=== PATIENT | female | born 1975 | race Hispanic/Latino ===

== ENCOUNTER 2023-03-07 20:26 | Emergency (ER) | payer OTHER ==
[2023-03-07] MEDS ORDERED: diphenhydrAMINE 25 MG CAP ONE (21:17)
[2023-03-07] MEDS ORDERED: Ketorolac Tromethamine 30 MG/ML VIAL ONE (21:17)
[2023-03-07] MEDS ORDERED: Metoclopramide HCl 10 MG TAB ONE (21:18)
[2023-03-07 21:45] LABS: SARS-CoV-2 NAA Rapid Test DETECTED (NotDetected)
[2023-03-07] MEDS ORDERED: Ondansetron ODT 4 MG TAB ONE (22:22)
[2023-03-07] MEDS ORDERED: HYDROcodone/Acetaminophen 5/325 mg Tablet ONE (22:34)
== END 2023-03-07 22:43 | disposition home or self-care (01) ==
LOC: ERS 20:26
DX: U07.1 COVID-19 (principal)
CPT/HCPCS: 96372; 99284; J1885; Q0162

== ENCOUNTER 2024-03-09 21:37 | Emergency (ER) | payer OTHER ==
[2024-03-09 22:46] LABS: #Basophils 0.05 10x3/uL (0.0-0.2); %Basophils 0.8 % (0.0-1.0); %Eosinophils 2.2 % (0.0-10.0); %Lymphocytes 30.5 % (21.0-51.0); %Monocytes 8.9 % (0.0-10.0); %Neutrophils 57.4 % (42.0-75.0); Hematocrit 42.3 % (36.0-47.0); Hemoglobin 14.4 g/dL (12.0-16.0); Mean Corpuscular Hemoglobin 29.9 pg (27.0-31.0); Mean Corpuscular Volume 87.9 fL (78.0-98.0); Platelet Count 262 10x3/uL (130-400); RBC Distribution Width 13.2 % (11.5-14.5); Red Blood Cell (RBC) Count 4.81 mill/uL (4.20-5.40)
[2024-03-09] MEDS ORDERED: Ketorolac Tromethamine 30 MG (1 mL) VIAL ONE (22:47)
[2024-03-09] MEDS ORDERED: Acetaminophen 500 MG TAB ONE (22:47)
[2024-03-09] MEDS ORDERED: Aspirin Chewable 81 MG TAB ONE (22:47)
[2024-03-09 23:07] LABS: ALT (SGPT) 38 U/L (8-55); AST (SGOT) 18 U/L (5-34); Alkaline Phosphatase 68 U/L (40-110); Anion Gap 14 mmol/L (10-20); BUN (Urea Nitrogen) 16 mg/dL (7.0-18.7); Bilirubin, Total 0.5 mg/dL (0.2-1.2); Calc. Creatinine Clearance 0 mL/min (70-130); Calcium 10.3 mg/dL (7.8-10.44); Carbon Dioxide 28 mmol/L (22-29); Chloride 108 mmol/L (98-107); Estimated GFR 82; Globulin 3.4 g/dL (2.4-3.5); Glucose 97 mg/dL (70-105); Potassium 3.6 mmol/L (3.5-5.1); Protein, Total 7.4 g/dL (6.0-8.3); Sodium 146 mmol/L (136-145)
[2024-03-09 23:08] LABS: Troponin I Less than 0.010 ng/mL (< 0.028)
== END 2024-03-10 00:17 | disposition home or self-care (01) ==
LOC: ERS 21:37
DX: R07.2 Precordial pain (principal); K21.9 Gastro-esophageal reflux disease without esophagitis; E11.9 Type 2 diabetes mellitus without complications; E03.9 Hypothyroidism, unspecified; Z79.84 Long term (current) use of oral hypoglycemic drugs; Z79.890 Hormone replacement therapy
CPT/HCPCS: 36415; 71045; 80053; 84484; 85025; 93005; 96372; J1885